=== PATIENT | female | born 1980 | race American Indian/Alaskan Native ===

== ENCOUNTER 2020-09-09 23:05 | Emergency (ER) | payer SELFPAY ==
[2020-09-10] MEDS ORDERED: LOSARTAN 50 MG TAB PO ONE (02:06)
[2020-09-10] MEDS ORDERED: hydroCHLOROthiazide 25 MG TAB PO ONE (02:06)
--- NOTE | 2020-09-10 02:46 | Cat Scan Report ---
Examination: CT of the head without contrast Clinical information: Headache. Dizziness. Comparison: None Technical: Multiple axial CT images of the head were obtained without intravenous contrast. Sagittal and coronal reformats were obtained. All CTs at this facility utilize dose reduction techniques inc luding automated exposure control, iterative reconstruction and weight based dosing when appropriate to reduce patient radiation dose to as low as reasonable achievable. Findings: INTRACRANIAL CONTENTS: There is no CT evidence of acute intracranial hemorrhage or large territorial infarct. The ventricular system is normal in size. No extra-axial fluid collections are identified. ORBITS: The bilateral orbits and globes appear normal SKULL: No acute bony abnormality is visualized. PARANASAL SINUSES / MASTOID AIR CELLS: There is moderate mucosal thickening of the ethmoid air cells and visualized right maxillary sinus. Impression: 1. No CT evidence of acute intracranial process. 2. Mucosal thickening of the ethmoid air cells may suggest sinusitis. Signer Name: Jania Carney MD Signed: 09/10/2020 2:42 AM Workstation Name: [id number]
[2020-09-10 03:17] LABS: BUN/Creatinine Ratio 16; Blood Urea Nitrogen 16 mg/dL (7-17); Calcium 9.1 mg/dL (8.4-10.2); Hemolysis Index 6
[2020-09-10 03:23] LABS: Basophils # (Auto) 0.1 K/mm3 (0.0-0.1); Basophils % (Auto) 1.3 % (0.0-1.8); Eosinophils # (Auto) 1.1 K/mm3 (0.0-0.4); Eosinophils % (Auto) 14.1 % (0.0-4.3); Hematocrit 33.9 % (30.3-42.9); Lymphocytes # (Auto) 2.3 K/mm3 (1.2-5.4); Lymphocytes % (Auto) 30.3 % (13.4-35.0); Mean Corpuscular HGB Conc 35 % (30-34); Mean Corpuscular Volume 87 fl (79-97); Monocytes # (Auto) 0.5 K/mm3 (0.0-0.8); Monocytes % (Auto) 6.1 % (0.0-7.3); Platelet Count 306 K/mm3 (140-440); Red Blood Count 3.92 M/mm3 (3.65-5.03); Red Cell Distribution Width 14.1 % (13.2-15.2)
--- NOTE | 2020-09-10 03:45 | Emergency Department Report ---
ED General Adult HPI - General Chief complaint: High BP Stated complaint: POSS HIGH BP, DIZZINESS Time Seen by Provider: 09/10/20 01:53 Source: patient Mode of arrival: Ambulatory Limitations: No Limitations - History of Present Illness Initial comments: 40-year-old female, history of hypertension, presents to ED with headache, dizziness earlier today. Patient has history of hypertension and states she has been out of her losartan and HCTZ for approximately 1 week. Patient reports some associated nausea and bilateral shoulder pain during her episode. Patient states all her symptoms have resolved including headache and dizziness. She denies any shortness of breath, cough, fever. -: This evening Location: head Quality: aching Consistency: now resolved Improves with: none Worsens with: none Associated Symptoms: headaches. denies: chest pain, cough, diaphoresis, feve r/chills, shortness of breath - Related Data Previous Rx's Medication Instructions Recorded Last Taken Type Losartan [Cozaar] 50 mg PO QDAY #30 tablet 09/10/20 Unknown Rx hydroCHLOROthiazide [HCTZ] 25 mg PO QDAY #30 tablet 09/10/20 Unknown Rx Allergies Allergy/AdvReac Type Severity Reaction Status Date / Time No Known Allergies Allergy Unverified 09/09/20 23:24 ED Review of Systems ROS: Stated complaint: POSS HIGH BP, DIZZINESS Other details as noted in HPI Comment: All other systems reviewed and negative Constitutional: denies: fever Respiratory: denies: cough, shortness of breath Cardiovascular: denies: chest pain Gastrointestinal: nausea. denies: vomiting Neurological: headache. denies: weakness, numbness, paresthesias ED Past Medical Hx - Past Medical History Hx Hypertension: Yes Hx Asthma: Yes - Surgical History Past Surgical History?: No - Social History Smoking Status: Never Smoker Substance Use Type: None - Medications Home Medications: Home Medications Medication Instructions Recorded Confirmed Last Taken Type Losartan [Cozaar] 50 mg PO QDAY #30 tablet 09/10/20 Unknown Rx hydroCHLOROthiazide [HCTZ] 25 mg PO QDAY #30 tablet 09/10/20 Unknown Rx ED Physical Exam - General Limitations: No Limitations General appearance: alert, in no apparent distress - Head Head exam: Present: atraumatic, normocephalic - Eye Eye exam: Present: normal appearance, EOMI - ENT ENT exam: Present: mucous membranes moist - Neck Neck exam: Present: normal inspection, full ROM. Absent: meningismus - Respiratory Respiratory exam: Present: normal lung sounds bilaterally. Absent: respiratory distress - Cardiovascular Cardiovascular Exam: Present: regular rate, normal rhythm - GI/Abdominal GI/Abdominal exam: Present: soft. Absent: distended, tenderness - Extremities Exam Extremities exam: Present: normal inspection. Absent: pedal edema, calf tenderness - Neurological Exam Neurological exam: Present: alert, oriented X3, CN II-XII intact. Absent: motor sensory deficit - Psychiatric Psychiatric exam: Present: normal affect, normal mood - Skin Skin exam: Present: warm, dry, intact, normal color ED Course Vital Signs 09/09/20 09/10/20 09/10/20 23:23 01:58 02:00 Temperature 97.8 F 98.3 F Pulse Rate 82 74 Respiratory 17 18 Rate Blood Pressure 211/120 167/125 Blood Pressure 176/119 [Right] O2 Sat by Pulse 96 95 95 Oximetry 09/10/20 09/10/20 09/10/20 02:30 02:55 03:30 Temperature Pulse Rate 64 72 Respiratory 11 L Rate Blood Pressure 183/99 155/105 184/100 Blood Pressure [Right] O2 Sat by Pulse 96 Oximetry ED Medical Decision Making - Lab Data Result diagrams: 09/10/20 02:26 09/10/20 02:26 - EKG Data -: EKG Interpreted by Me EKG shows normal: sinus rhythm, axis, intervals, QRS complexes, ST-T waves Rate: normal - EKG Data Interpretation: no acute changes - Radiology Data Radiology results: report reviewed, image reviewed Critical care attestation.: If time is entered above; I have spent that time in minutes in the direct care of this critically ill patient, excluding procedure time. ED Disposition Clinical Impression: Uncontrolled hypertension Disposition: DC-01 TO HOME OR SELFCARE Is pt being admited?: No Condition: Stable Instructions: Managing Your Hypertension, Hypertension (ED) Prescriptions: Losartan [Cozaar] 50 mg PO QDAY #30 tablet hydroCHLOROthiazide [HCTZ] 25 mg PO QDAY #30 tablet Referrals: PRIMARY CARE, [Primary Care Provider] - 3-5 Days Time of Disposition: 03:40
[2020-09-10 04:06] VITALS: BP 171/97
== END 2020-09-10 04:00 | disposition home or self-care (01) ==
LOC: ED 23:05
DX: I10 Essential (primary) hypertension (principal)
CPT/HCPCS: 36415; 70450; 80048; 84484; 84703; 85025; 93005; 99283